=== PATIENT | female | born 1930 | race Caucasian/White ===

== ENCOUNTER → 2016-09-07 | Day surgery (SDC) | payer MEDICARE, BC ==
[~2016-09-07] VITALS: Ht 152.4 cm; Wt 104.4 kg
[~2016-09-07] MED LIST: ADVAIR 250-501 EACH INH; AZOPT 1% OPHTH; BEPREVE OPHTH; DOCUSATE SODIU100 MG PO; DUONEB INH; FISH OIL 1,0001 EACH PO; HUMALOG MI100 UNIT/5 SUB-Q; K-TAB 10MEQ10 MEQ PO; LANTUS (IN100 UNIT/M SUB-Q; LASIX40 MG PO; LIPITOR10 MG PO; OXYGEN M-15 INH; PRESERVISION A1 EAC1 PO; PRILOSEC20 MG PO; PRINIVIL OR ZES10 MG PO; PROZAC40 MG PO; XALATAN2.5 ML OPHTH
== END | disposition disaster alternative care site (69) ==
LOC: GPOC 09-06 13:00 → GEND 09:34 → GPOC 13:00
PROC: 0DBK8ZX Excision of Ascending Colon, Via Natural or Artificial Opening Endoscopic, Diagnostic (ICD-10-PCS; principal; 2016-09-07)
DX: K57.30 Diverticulosis of large intestine without perforation or abscess without bleeding (principal); K63.3 Ulcer of intestine; I10 Essential (primary) hypertension; J44.9 Chronic obstructive pulmonary disease, unspecified; E11.9 Type 2 diabetes mellitus without complications; Z87.891 Personal history of nicotine dependence; Z90.49 Acquired absence of other specified parts of digestive tract; Z90.710 Acquired absence of both cervix and uterus; Z98.49 Cataract extraction status, unspecified eye; Z79.899 Other long term (current) drug therapy; Z98.890 Other specified postprocedural states
CPT/HCPCS: J1610; J2001; J7030